=== PATIENT | female | born 1995 | race American Indian/Alaskan Native ===

== ENCOUNTER 2019-10-29 22:35 | Emergency (ER) | payer OTHER ==
[2019-10-29 22:41] VITALS: BP 151/82
[2019-10-29 23:04] LABS: Bilirubin,Urine NEG (Negative); Blood,Urine SM (Negative); Color,Urine Yellow (Yellow); Protein,Urine <15 mg/dL mg/dL (Negative); Urobilinogen,Urine < 2.0 mg/dL (<2.0)
--- NOTE | 2019-10-30 00:28 | Ultrasound Report ---
US OB transvaginal, US OB <= 14 weeks fetus INDICATION / CLINICAL INFORMATION: 11WEEKS WITH VAGINAL BLEEDING. COMPARISON: None available. FINDINGS: Intrauterine gestational sac is seen with pole and yolk sac. [place]-rump length is 12.5 mm, 7 we eks 3 days. Embryonic cardiac activity was not detected by the medical attendant. No subchorionic hemorrhage is seen. Maternal ovaries are unremarkable. No free fluid. IMPRESSION: 1. Intrauterine with sonographic gestational age of 7 weeks, 3 days. The medical attendant was un able to detect embryonic cardiac activity. Short-term sonographic follow-up and serial beta hCG level follow-up is recommended. Signer Name: Kirk Ames MD Signed: 10/30/2019 12:24 AM Workstation Name: [id number]
--- NOTE | 2019-10-30 00:28 | Ultrasound Report ---
US OB transvaginal, US OB <= 14 weeks fetus INDICATION / CLINICAL INFORMATION: 11WEEKS WITH VAGINAL BLEEDING. COMPARISON: None available. FINDINGS: Intrauterine gestational sac is seen with pole and yolk sac. [place]-rump length is 12.5 mm, 7 we eks 3 days. Embryonic cardiac activity was not detected by the manga artist. No subchorionic hemorrhage is seen. Maternal ovaries are unremarkable. No free fluid. IMPRESSION: 1. Intrauterine with sonographic gestational age of 7 weeks, 3 days. The manga artist was un able to detect embryonic cardiac activity. Short-term sonographic follow-up and serial beta hCG level follow-up is recommended. Signer Name: Kirk Ames MD Signed: 10/30/2019 12:24 AM Workstation Name: [id number]
[2019-10-30 00:32] LABS: Hematocrit 38.3 % (30.3-42.9); Hemoglobin 13.1 gm/dl (10.1-14.3); Mean Corpuscular HGB Conc 34 % (30-34); Mean Corpuscular Volume 90 fl (79-97); Platelet Count 286 K/mm3 (140-440); Red Blood Count 4.27 M/mm3 (3.65-5.03); Red Cell Distribution Width 12.7 % (13.2-15.2)
--- NOTE | 2019-10-30 04:16 | Emergency Department Report ---
ED HPI - General Chief complaint: Vaginal Bleeding Stated complaint: 11WKS PREG/BLEEDING Time Seen by Provider: 10/30/19 03:04 Source: patient Mode of arrival: Ambulatory Limitations: No Limitations - History of Present Illness Initial comments: This is a 24-year-old -[place] female who presents emergency room with vaginal bleeding that started around 1500 yesterday. Patient states she is 11 weeks and following [facility] and Dr. Johnson. Her last menstrual period was August 15, 2019, G5, miscarriage. Patient states when she noticed a small blood clot when she wiped she found it alarming and decided to come in for further evaluation. She denies abdominal pain, back pain, urinary frequency, urgency, and dysuria. MD Complaint: vaginal bleeding Onset/Timin -: hour(s) Severity scale (0 -10): 0 Improves with: none Worsens with: other (Urination) Associated symptoms: denies other symptoms Vaginal bleeding: light :: Yes Number of weeks : 11 OB History - Current : no complications OB History - Previous Pregnancies: miscarriage Last menstrual period: 08/15/19 Pre-meri care: followed by OB ([facility]) - Related Data : 5 Para: 3 Ab: 1 (Miscarriage) Previous Rx's Medication Instructions Recorded Last Taken Type Ibuprofen [Motrin 600 MG tab] 600 mg PO Q6H PRN #30 tablet 10/25/17 Unknown Rx Allergies Allergy/AdvReac Type Severity Reaction Status Date / Time No Known Allergies Allergy Verified 10/23/17 23:18 ED Review of Systems ROS: Stated complaint: 11WKS PREG/BLEEDING Other details as noted in HPI Constitutional: denies: chills, fever Respiratory: denies: cough, shortness of breath, wheezing Cardiovascular: denies: chest pain, palpitations Gastrointestinal: denies: abdominal pain, nausea, diarrhea Genitourinary: other (Vaginal bleeding during ). denies: urgency, dysuria, discharge Musculoskeletal: denies: back pain, joint swelling, arthralgia Skin: denies: rash, lesions Neurological: denies: headache, weakness, paresthesias Psychiatric: denies: anxiety, depression ED Past Medical Hx - Past Medical History Previous Medical History?: No Hx Hypertension: No Hx Congestive Heart Failure: No Hx Diabetes: No Hx Deep Vein Thrombosis: No Hx Renal Disease: No Hx Sickle Cell Disease: No Hx Seizures: No Hx Asthma: No Hx COPD: No Hx HIV: No - Social History Smoking Status: Never Smoker Substance Use Type: None - Medications Home Medications: Home Medications Medication Instructions Recorded Confirmed Last Taken Type Ibuprofen [Motrin 600 MG tab] 600 mg PO Q6H PRN #30 tablet 10/25/17 Unknown Rx ED Physical Exam - General Limitations: No Limitations General appearance: alert, in no apparent distress, obese - Respiratory Respiratory exam: Present: normal lung sounds bilaterally. Absent: respiratory distress - Cardiovascular Cardiovascular Exam: Present: regular rate, normal rhythm. Absent: systolic murmur, diastolic murmur, rubs, gallop - GI/Abdominal GI/Abdominal exam: Present: soft, normal bowel sounds. Absent: distended, tenderness, guarding, rebound, rigid - Extremities Exam Extremities exam: Present: normal inspection - Back Exam Back exam: Absent: CVA tenderness (R), CVA tenderness (L) - Neurological Exam Neurological exam: Present: alert, oriented X3, normal gait - Psychiatric Psychiatric exam: Present: normal affect, normal mood - Skin Skin exam: Present: warm, dry, intact, normal color. Absent: rash ED Course Vital Signs 10/29/19 22:39 Temperature 98 F Pulse Rate 100 H Respiratory 18 Rate Blood Pressure 151/82 O2 Sat by Pulse 100 Oximetry ED Medical Decision Making - Lab Data Result diagrams: 10/30/19 00:19 Lab Results 10/29/19 10/30/19 10/30/19 Range/Units Unknown 00:19 00:19 WBC 8.7 (4.5-11.0) K/mm3 RBC 4.27 (3.65-5.03) M/mm3 Hgb 13.1 (10.1-14.3) gm/dl Hct 38.3 (30.3-42.9) % MCV 90 (79-97) fl MCH 31 (28-32) pg MCHC 34 (30-34) % RDW 12.7 L (13.2-15.2) % Plt Count 286 (140-440) K/mm3 HCG, Quant 21153 H (0-4) mIU/mL Urine Color Yellow (Yellow) Urine Turbidity Clear (Clear) Urine pH 6.0 (5.0-7.0) Ur Specific [place] 1.020 (1.003-1.030) Urine Protein <15 mg/dl (Negative) mg/dL Urine Glucose (UA) Neg (Negative) mg/dL Urine Ketones Neg (Negative) mg/dL Urine Blood Sm (Negative) Urine Nitrite Neg (Negative) Urine Bilirubin Neg (Negative) Urine Urobilinogen < 2.0 (<2.0) mg/dL Ur Leukocyte Esterase Neg (Negative) Urine WBC (Auto) 1.0 (0.0-6.0) /HPF Urine RBC (Auto) 4.0 (0.0-6.0) /HPF U Epithel Cells (Auto) 1.0 (0-13.0) /HPF - Radiology Data Radiology results: report reviewed US OB transvaginal, US OB <= 14 weeks fetus INDICATION / CLINICAL INFORMATION: 11WEEKS WITH VAGINAL BLEEDING. COMPARISON: None available. FINDINGS: Intrauterine gestational sac is seen with pole and yolk sac. [place]-rump length is 12.5 mm, 7 weeks 3 days. Embryonic cardiac activity was not detected by the alligator hunter. No subchorionic hemorrhage is seen. Maternal ovaries are unremarkable. No free fluid. IMPRESSION: 1. Intrauterine with sonographic gestational age of 7 weeks, 3 days. The alligator hunter was unable to detect embryonic cardiac activity. Short-term sonographic follow-up and serial beta hCG level follow-up is recommended. - Medical Decision Making This is a 24-year-old female that presents with 6 hours of vaginal bleeding during . Vitals are stable and patient in no acute distress. Denies vaginal discharge, UTI symptoms, abdominal pain, and back pain. Work-up: Urinalysis, urine test, hCG quant, and OB ultrasound. Urinalysis small blood, hCG quant 10,600, and OB ultrasound findings of Intrauterine with sonographic gestational age of 7 weeks, 3 days. The alligator hunter was unable to detect embryonic cardiac activity. Short-term sonographic follow-up and serial beta hCG level follow-up is recommended. This is a threatened miscarriage. Instructed to have repeat labs in 2 days to rule out threatened miscarriage. Follow-up with [facility]. Patient discharged home stable with strict return instructions. Critical care attestation.: If time is entered above; I have spent that time in minutes in the direct care of this critically ill patient, excluding procedure time. ED Disposition Clinical Impression: Vaginal bleeding affecting early , Threatened miscarriage in early Disposition: DC-01 TO HOME OR SELFCARE Is pt being admited?: No Condition: Stable Instructions: Threatened Miscarriage (ED) Additional Instructions: Your hCG quant on today's visit was 10,600. You will need to have repeat hormone levels in 2 days with your BLOOD BANK CUSTODIAN or return to the emergency room. Return to the emergency room if you experience worsening abdominal pain, worsening bleeding, or back pain. Referrals: [facility] [Provider Group] - 3-5 Days Forms: Work/School Release Form(ED) Time of Disposition: 04:17
== END 2019-10-30 04:29 | disposition home or self-care (01) ==
LOC: ED 22:35
DX: O20.0 Threatened abortion (principal); O20.9 Hemorrhage in early pregnancy, unspecified; Z3A.11 11 weeks gestation of pregnancy; Z79.899 Other long term (current) drug therapy
CPT/HCPCS: 36415; 76801; 76817; 81001; 84702; 85027

== ENCOUNTER 2021-04-04 09:58 | Emergency (ER) | payer OTHER ==
[2021-04-04 11:20] VITALS: BP 122/72
== END 2021-04-04 12:47 ==
LOC: ED 09:58
DX: Z04.1 Encounter for examination and observation following transport accident (principal); Z53.21 Procedure and treatment not carried out due to patient leaving prior to being seen by health care provider